=== PATIENT | female | born 1930 | race Caucasian/White ===

== ENCOUNTER 2018-09-01 07:33 | Emergency (ER) | payer BC ==
[~2018-09-01] VITALS: Ht 152.4 cm; Wt 77.1 kg
[2018-09-01 07:45] VITALS: BP_SYST 163
--- NOTE | 2018-09-01 07:45 | NUR ---
Arrived via WC with compliant of right flank pain x 2 days, suddenly worse at 5AM. Reports hematuria, denies fever. Patient is normally O2 dependent, SOB on arrival. Placed in room 8. Placed on registered nurse cardiac, blood pressure machine and pulse oximeter. To gown for exam. Side rails up. Report given to Bolivar I[place].
--- NOTE | 2018-09-01 07:50 | NUR ---
Pt presents to ER for sob and low back pain 06/24, however pt states low back pain is primarily at the L side at this time. Pt reports x 1 week she has been having urinary frequency and blood with urination along with the low back / L flank pain pain. Pt denies chest pain or nausea or vomiting at this time. Pt reports that she is normally on oxygen at home but was having trouble getting machine to work this AM. Otherwise, pt is AOX4, speaking full sentences, no signs of acute distress.
--- NOTE | 2018-09-01 07:55 | NUR ---
# 20 gauge angiocath placed to LAC. Use of asceptic technique. Opsite placed over site. Blood return noted. Blood for lab drawn from site. Flushed with 10 cc of normal saline. No evidence of infiltration noted. Patient tolerated well.
--- NOTE | 2018-09-01 08:00 | NUR ---
SEBAS Harper at bedside examining patient.
[2018-09-01] MEDS ORDERED: ONDANSETRON HCL 4 MG/2 ML VIAL IVP ONE (08:15)
[2018-09-01] MEDS ORDERED: MORPHINE 4 MG/ML INJ. SYRINGE IVP ONE (08:15)
[2018-09-01] MEDS ORDERED: NACL 0.9% 1,000 ML IV ONE (08:15)
--- NOTE | 2018-09-01 08:22 | NUR ---
Patient transported to radiology via gurney, accompanied by rad staff.
[2018-09-01 08:33] LABS: BASOPHILS # (AUTO) 0.1 K/uL (0.0-0.2); BASOPHILS % (AUTO) 0.7 % (0.0-2.0); EOSINOPHILS # (AUTO) 0.2 K/uL (0.0-0.4); EOSINOPHILS % (AUTO) 2.4 % (0.0-4.0); HEMATOCRIT 48.7 % (36-48); HEMOGLOBIN 16.2 g/dL (12.0-16.0); LYMPHOCYTES # (AUTO) 1.3 K/uL (1.0-5.5); MEAN CORPUSCULAR HEMOGLOBIN 31 pg (27-31); MEAN CORPUSCULAR HGB CONC 33 % (32-36); MEAN CORPUSCULAR VOLUME 92 fL (79.0-98.0); MONOCYTES # (AUTO) 0.5 K/uL (0.0-1.0); MONOCYTES % (AUTO) 6.6 % (1.7-9.3); NEUTROPHILS # (AUTO) 6.2 K/uL (1.8-7.7); NEUTROPHILS % (AUTO) 74.3 % (40.0-70.0); PLATELET COUNT (AUTO) 233 K/uL (130-430); RED BLOOD CELL COUNT(AUTO) 5.28 MIL/uL (4.2-6.2); WHITE BLOOD COUNT (AUTO) 8.3 K/uL (4.8-10.8)
[2018-09-01 08:35] LABS: BILIRUBIN,URINE NEGATIVE (NEGATIVE); BLOOD, URINE 3+ (NEGATIVE); CLARITY/URINE HAZY (CLEAR); COLOR,URINE YELLOW (YELLOW); GLUCOSE,URINE NEGATIVE (NEGATIVE); KETONES,URINE NEGATIVE (NEGATIVE); LEUKOCYTE ESTERASE ,URINE 1+ (NEGATIVE); NITRITE, URINE NEGATIVE (NEGATIVE); PH,URINE 5.5 (5.0-8.0); PROTEIN URINE 1+ (NEGATIVE); UROBILINOGEN,URINE 0.2 (0.2-1.0)
[2018-09-01 08:48] LABS: ANION GAP 11 (5-15); CALCIUM 9.4 mg/dL (8.4-11.0); CHLORIDE 104 mmol/L (98-107); CREATININE 0.85 mg/dL (0.55-1.30); GLUCOSE 108 mg/dL (70-99); POTASSIUM 3.5 mmol/L (3.5-5.1); SODIUM SERUM 141 mmol/L (136-145); UREA NITROGEN, BLOOD 12 mg/dL (8-21)
[2018-09-01 08:54] LABS: ALANINE AMINOTRANSFERASE 21 U/L (12-78); ALBUMIN 3.2 g/dL (3.4-4.8); ASPARTATE AMINOTRANSFERASE 24 U/L (10-37); TOTAL BILIRUBIN 1.6 mg/dL (0.0-1.0)
[2018-09-01 08:55] LABS: BACTERIA,URINE FEW /HPF (None Seen); CALCIUM OXALATE CRYSTALS,UR 0-10 /HPF (None Seen); RBC,URINE 20-50 /HPF (0-3)
[2018-09-01] MEDS ORDERED: NITROFURANTOIN MONOHYD/M-CRYST 100 MG CAPSULE PO ONE ×2 (09:15→09:18)
[2018-09-01] MEDS ORDERED: TAMSULOSIN HCL 0.4 MG CAP PO ONE (09:15)
--- NOTE | 2018-09-01 09:50 | NUR ---
Patient given written and verbal discharge instructions and verbalizes understanding. ER MD discussed with patient the results and treatment provided. Patient in stable condition. ID arm band removed. IV catheter removed intact and dressing applied, no active bleeding. Rx of Flomax, [place], Macrobid given. Patient educated on pain management and to follow up with PMD. Pain Scale 0/10. Opportunity for questions provided and answered. Medication side effect fact sheet provided.
[2018-09-01 09:54] VITALS: BP_SYST 168
== END 2018-09-01 09:54 | disposition home or self-care (01) ==
LOC: SED 07:33
DX: N20.0 Calculus of kidney (principal); N39.0 Urinary tract infection, site not specified; I48.91 Unspecified atrial fibrillation; I10 Essential (primary) hypertension
CPT/HCPCS: 36415; 74176; 80053; 81000; 83605; 85025; 87040; 87086; 93005; 96374; 96375; 99284; J2270; J2405; J7030

== ENCOUNTER 2019-08-16 02:40 | Emergency (ER) | payer BC ==
[~2019-08-16] VITALS: Ht 157.5 cm; Wt 79.8 kg
[2019-08-16 02:50] VITALS: BP_SYST 152
[2019-08-16] MEDS ORDERED: NACL 0.9% 1,000 ML IV ONE (03:33)
[2019-08-16] MEDS ORDERED: ONDANSETRON HCL 4 MG/2 ML VIAL IVP ONE (03:45)
[2019-08-16] MEDS ORDERED: MORPHINE 4 MG/ML INJ. SYRINGE IVP ONE (03:45)
[2019-08-16 04:01] LABS: BASOPHILS # (AUTO) 0.1 K/uL (0.0-0.2); EOSINOPHILS # (AUTO) 0.2 K/uL (0.0-0.4); EOSINOPHILS % (AUTO) 2.3 % (0.0-4.0); HEMATOCRIT 39.1 % (36-48); LYMPHOCYTES # (AUTO) 1.6 K/uL (1.0-5.5); LYMPHOCYTES % (AUTO) 17.1 % (20.5-51.5); MEAN CORPUSCULAR HEMOGLOBIN 31 pg (27-31); MEAN CORPUSCULAR HGB CONC 33 % (32-36); MEAN CORPUSCULAR VOLUME 92 fL (79.0-98.0); MONOCYTES # (AUTO) 0.9 K/uL (0.0-1.0); MONOCYTES % (AUTO) 9.6 % (1.7-9.3); NEUTROPHILS # (AUTO) 6.5 K/uL (1.8-7.7); PLATELET COUNT (AUTO) 227 K/uL (130-430); RED BLOOD CELL COUNT(AUTO) 4.23 MIL/uL (4.2-6.2); RED CELL DISTRIBUTION WIDTH 15.2 % (9.0-15.0); WHITE BLOOD COUNT (AUTO) 9.3 K/uL (4.8-10.8)
[2019-08-16 05:31] LABS: ALANINE AMINOTRANSFERASE 25 U/L (12-78); ALBUMIN 3.3 g/dL (3.4-4.8); ASPARTATE AMINOTRANSFERASE 17 U/L (10-37); CHLORIDE 104 mmol/L (98-107); CREATININE 0.93 mg/dL (0.55-1.30); GLUCOSE 111 mg/dL (70-99); POTASSIUM 3.2 mmol/L (3.5-5.1); TOTAL BILIRUBIN 0.8 mg/dL (0.0-1.0)
[2019-08-16 05:46] LABS: ANION GAP 6 (5-15); CALCIUM 9.4 mg/dL (8.4-11.0); SODIUM SERUM 143 mmol/L (136-145); UREA NITROGEN, BLOOD 19 mg/dL (8-21)
[2019-08-16 06:21] VITALS: BP_SYST 157
== END 2019-08-16 06:21 | disposition home or self-care (01) ==
LOC: SED 02:40
DX: M48.54XA Collapsed vertebra, not elsewhere classified, thoracic region, initial encounter for fracture (principal); E87.6 Hypokalemia; I10 Essential (primary) hypertension; I48.91 Unspecified atrial fibrillation
CPT/HCPCS: 36415; 72128; 80053; 85025; 93005; 96374; 96375; 99284; J2270; J2405; J7030

== ENCOUNTER 2019-10-08 21:25 | Inpatient (IN) | payer BC, OTHER ==
[~2019-10-08] VITALS: Ht 154.9 cm; Wt 82.1 kg
[2019-10-08 21:32] VITALS: BP_SYST 124
[2019-10-08] MEDS ORDERED: MORPHINE 2 MG/ML INJ. SYRINGE IVP ONE (22:45)
[2019-10-08] MEDS ORDERED: KETOROLAC TROMETHAMINE 15 MG VIAL IVP ONE (22:45)
[2019-10-08 22:56] LABS: BASOPHILS % (AUTO) 0.4 % (0.0-2.0); EOSINOPHILS # (AUTO) 0.3 K/uL (0.0-0.4); EOSINOPHILS % (AUTO) 3.7 % (0.0-4.0); HEMOGLOBIN 12.3 g/dL (12.0-16.0); LYMPHOCYTES % (AUTO) 10.6 % (20.5-51.5); MEAN CORPUSCULAR HEMOGLOBIN 29 pg (27-31); MEAN CORPUSCULAR HGB CONC 32 % (32-36); MEAN CORPUSCULAR VOLUME 89 fL (79.0-98.0); MONOCYTES # (AUTO) 0.8 K/uL (0.0-1.0); MONOCYTES % (AUTO) 8.6 % (1.7-9.3); NEUTROPHILS # (AUTO) 7.4 K/uL (1.8-7.7); NEUTROPHILS % (AUTO) 76.7 % (40.0-70.0); PLATELET COUNT (AUTO) 226 K/uL (130-430); RED BLOOD CELL COUNT(AUTO) 4.25 MIL/uL (4.2-6.2); RED CELL DISTRIBUTION WIDTH 15.5 % (9.0-15.0); WHITE BLOOD COUNT (AUTO) 9.6 K/uL (4.8-10.8)
[2019-10-08 23:04] LABS: ANION GAP 5 (5-15); CALCIUM 9.1 mg/dL (8.4-11.0); CHLORIDE 100 mmol/L (98-107); CREATININE 0.77 mg/dL (0.55-1.30); GLUCOSE 127 mg/dL (70-99); SODIUM SERUM 138 mmol/L (136-145); UREA NITROGEN, BLOOD 11 mg/dL (8-21)
[2019-10-08 23:08] LABS: INR 1.1 (0.8-1.2); PROTHROMBIN TIME 10.6 SECS (9.5-12.5)
[2019-10-08 23:10] LABS: ALANINE AMINOTRANSFERASE 18 U/L (12-78); ASPARTATE AMINOTRANSFERASE 23 U/L (10-37); TOTAL BILIRUBIN 0.7 mg/dL (0.0-1.0)
[2019-10-08 23:24] LABS: POTASSIUM 2.9 mmol/L (3.5-5.1)
[2019-10-09] MEDS ORDERED: FUROSEMIDE 40 MG/4 ML VIAL IVP ONE
[2019-10-09] MEDS ORDERED: MAGNESIUM SULFATE 50 ML IV ONE (00:30)
[2019-10-09] MEDS ORDERED: POTASSIUM CHLORIDE 10 MEQ TAB.PRT.SR PO ONE (00:30)
[2019-10-09] MEDS ORDERED: KCL 20 mEq in 100 mL (PREMIX) 100 ML IV ONE (00:30)
[2019-10-09 03:03] VITALS: BP_SYST 152
[2019-10-09] MEDS ORDERED: ACETAMINOPHEN 325 MG TABLET PO PRN (04:00)
[2019-10-09] MEDS ORDERED: MORPHINE 2 MG/ML INJ. SYRINGE IVP PRN (04:00)
[2019-10-09] MEDS: MORPHINE 2 MG/ML INJ. SYRINGE IVP PRN ×2 (05:55→17:30)
[2019-10-09 07:28] VITALS: BP_SYST 143
[2019-10-09 08:00] VITALS: BP_SYST 143
[2019-10-09 08:11] LABS: BASOPHILS % (AUTO) 0.6 % (0.0-2.0); EOSINOPHILS # (AUTO) 0.3 K/uL (0.0-0.4); EOSINOPHILS % (AUTO) 3.5 % (0.0-4.0); HEMATOCRIT 38.9 % (36-48); HEMOGLOBIN 12.5 g/dL (12.0-16.0); LYMPHOCYTES % (AUTO) 13.8 % (20.5-51.5); MEAN CORPUSCULAR HEMOGLOBIN 29 pg (27-31); MEAN CORPUSCULAR HGB CONC 32 % (32-36); MEAN CORPUSCULAR VOLUME 89 fL (79.0-98.0); MONOCYTES # (AUTO) 0.5 K/uL (0.0-1.0); MONOCYTES % (AUTO) 7.2 % (1.7-9.3); NEUTROPHILS # (AUTO) 5.6 K/uL (1.8-7.7); NEUTROPHILS % (AUTO) 74.9 % (40.0-70.0); PLATELET COUNT (AUTO) 219 K/uL (130-430); RED BLOOD CELL COUNT(AUTO) 4.35 MIL/uL (4.2-6.2); RED CELL DISTRIBUTION WIDTH 15.5 % (9.0-15.0); WHITE BLOOD COUNT (AUTO) 7.5 K/uL (4.8-10.8)
[2019-10-09 08:31] LABS: CHOLESTEROL 185 mg/dL (<200); TRIGLYCERIDES 88 mg/dL (30-150)
[2019-10-09 08:32] LABS: HDL CHOLESTEROL 59 mg/dL (>55); LDL CHOLESTEROL 101 mg/dL (<100)
[2019-10-09 08:35] LABS: ANION GAP 1 (5-15); CALCIUM 8.8 mg/dL (8.4-11.0); CHLORIDE 100 mmol/L (98-107); CREATININE 0.66 mg/dL (0.55-1.30); GLUCOSE 115 mg/dL (70-99); POTASSIUM 3.2 mmol/L (3.5-5.1); SODIUM SERUM 139 mmol/L (136-145); TOTAL BILIRUBIN 0.9 mg/dL (0.0-1.0); UREA NITROGEN, BLOOD 9 mg/dL (8-21)
[2019-10-09 08:36] LABS: ALANINE AMINOTRANSFERASE 20 U/L (12-78); ASPARTATE AMINOTRANSFERASE 20 U/L (10-37)
[2019-10-09] MEDS ORDERED: traZODone HCL 50 MG TABLET (DESYREL) PO PRN (08:45)
[2019-10-09] MEDS ORDERED: TRAZ-250 PO (08:45)
[2019-10-09] MEDS ORDERED: SENN-153 PO (08:45)
[2019-10-09] MEDS ORDERED: LORA-258 PO (08:45)
[2019-10-09] MEDS ORDERED: FURO-150 PO (08:45)
[2019-10-09] MEDS ORDERED: LORazepam 1 MG TABLET PO PRN ×2 (08:45→09:15)
[2019-10-09] MEDS ORDERED: DOCU-144 PO (08:45)
[2019-10-09] MEDS ORDERED: DOCUSATE SODIUM 100 MG CAPSULE PO SCH (09:00)
[2019-10-09] MEDS: ASPIRIN 81 MG TAB.CHEW PO SCH (09:05)
[2019-10-09] MEDS: METOPROLOL TARTRATE 25 MG TABLET PO SCH ×2 (09:06→20:46)
[2019-10-09] MEDS ORDERED: ALPRAZolam 0.25 MG TABLET PO ONE (09:15)
[2019-10-09] MEDS ORDERED: NITROGLYCERIN 0.4 MG TAB.SUBL SL PRN (09:15)
[2019-10-09] MEDS ORDERED: MORPHINE 2 MG/ML INJ. SYRINGE IVP ONE (09:15)
[2019-10-09] MEDS ORDERED: FUROSEMIDE 20 MG TABLET PO ONE (09:30)
[2019-10-09] MEDS ORDERED: NITROGLYCERIN 0.2 MG/HR PATCH.TD24 TD ONE (09:30)
[2019-10-09] MEDS ORDERED: SENNOSIDES 8.6 MG TABLET PO ONE (09:30)
[2019-10-09] MEDS ORDERED: MORPHINE 4 MG/ML INJ. SYRINGE IVP ONE (09:45)
[2019-10-09] MEDS: IPRATROPIUM/ALBUTEROL SULFATE 3 ML AMPUL.NEB (DUONEB) INH SCH ×4 (11:00→23:18)
[2019-10-09] MEDS: CALCITONIN SALMON,SYNTHETIC 3.7 ML SPRAY.PUMP NS SCH (11:13)
[2019-10-09 12:23] VITALS: BP_SYST 103
[2019-10-09 16:21] VITALS: BP_SYST 115
[2019-10-09] MEDS: LORazepam 1 MG TABLET PO PRN (17:29)
[2019-10-09 20:15] VITALS: BP_SYST 113
[2019-10-09] MEDS: SENNOSIDES 8.6 MG TABLET PO SCH (20:46)
[2019-10-09] MEDS: traZODone HCL 50 MG TABLET (DESYREL) PO SCH (20:48)
[2019-10-10 00:12] VITALS: BP_SYST 132
[2019-10-10] MEDS: IPRATROPIUM/ALBUTEROL SULFATE 3 ML AMPUL.NEB (DUONEB) INH SCH ×6 (03:31→22:53)
[2019-10-10] MEDS: LORazepam 1 MG TABLET PO PRN ×2 (03:36→12:21)
[2019-10-10] MEDS: MORPHINE 2 MG/ML INJ. SYRINGE IVP PRN ×6 (03:38→23:56)
[2019-10-10 07:26] LABS: BASOPHILS # (AUTO) 0.1 K/uL (0.0-0.2); EOSINOPHILS # (AUTO) 0.6 K/uL (0.0-0.4); EOSINOPHILS % (AUTO) 6.8 % (0.0-4.0); HEMATOCRIT 35.8 % (36-48); HEMOGLOBIN 11.4 g/dL (12.0-16.0); LYMPHOCYTES # (AUTO) 1.3 K/uL (1.0-5.5); LYMPHOCYTES % (AUTO) 15.7 % (20.5-51.5); MEAN CORPUSCULAR HEMOGLOBIN 29 pg (27-31); MEAN CORPUSCULAR HGB CONC 32 % (32-36); MEAN CORPUSCULAR VOLUME 90 fL (79.0-98.0); MONOCYTES # (AUTO) 0.7 K/uL (0.0-1.0); MONOCYTES % (AUTO) 8.6 % (1.7-9.3); NEUTROPHILS # (AUTO) 5.7 K/uL (1.8-7.7); NEUTROPHILS % (AUTO) 67.9 % (40.0-70.0); PLATELET COUNT (AUTO) 208 K/uL (130-430); RED BLOOD CELL COUNT(AUTO) 3.99 MIL/uL (4.2-6.2); RED CELL DISTRIBUTION WIDTH 15.6 % (9.0-15.0); WHITE BLOOD COUNT (AUTO) 8.4 K/uL (4.8-10.8)
[2019-10-10 07:44] LABS: ALANINE AMINOTRANSFERASE 14 U/L (12-78); ALBUMIN 2.8 g/dL (3.4-4.8); ANION GAP 2 (5-15); ASPARTATE AMINOTRANSFERASE 22 U/L (10-37); CALCIUM 8.8 mg/dL (8.4-11.0); CHLORIDE 98 mmol/L (98-107); GLUCOSE 125 mg/dL (70-99); POTASSIUM 3.3 mmol/L (3.5-5.1); SODIUM SERUM 137 mmol/L (136-145); THYROID STIMULATING HORMONE 1.71 uIu/mL (0.36-3.74); TOTAL BILIRUBIN 0.8 mg/dL (0.0-1.0); UREA NITROGEN, BLOOD 21 mg/dL (8-21)
[2019-10-10 08:00] VITALS: BP_SYST 111
[2019-10-10] MEDS ORDERED: POTASSIUM CHLORIDE 20 MEQ TAB.PRT.SR PO ONE (08:15)
[2019-10-10] MEDS: SENNOSIDES 8.6 MG TABLET PO SCH ×2 (08:16→20:04)
[2019-10-10] MEDS: ASPIRIN 81 MG TAB.CHEW PO SCH (08:16)
[2019-10-10] MEDS: DOCUSATE SODIUM 100 MG CAPSULE PO SCH (08:16)
[2019-10-10] MEDS: METOPROLOL TARTRATE 25 MG TABLET PO SCH ×2 (08:17→20:04)
[2019-10-10] MEDS: NITROGLYCERIN 0.2 MG/HR PATCH.TD24 TD SCH (08:18)
[2019-10-10] MEDS: FUROSEMIDE 20 MG TABLET PO SCH (08:18)
[2019-10-10] MEDS: CALCITONIN SALMON,SYNTHETIC 3.7 ML SPRAY.PUMP NS SCH (10:03)
[2019-10-10 12:00] VITALS: BP_SYST 110
[2019-10-10 16:00] VITALS: BP_SYST 144
[2019-10-10 19:00] VITALS: BP_SYST 134
[2019-10-10 20:00] VITALS: BP_SYST 134
[2019-10-10] MEDS: traZODone HCL 50 MG TABLET (DESYREL) PO SCH (20:03)
[2019-10-11 00:16] VITALS: BP_SYST 112
[2019-10-11] MEDS: IPRATROPIUM/ALBUTEROL SULFATE 3 ML AMPUL.NEB (DUONEB) INH SCH ×4 (03:00→15:09)
[2019-10-11] MEDS: MORPHINE 2 MG/ML INJ. SYRINGE IVP PRN ×2 (04:20→11:09)
[2019-10-11 07:46] LABS: ALANINE AMINOTRANSFERASE 16 U/L (12-78); ALBUMIN 2.6 g/dL (3.4-4.8); ANION GAP 2 (5-15); ASPARTATE AMINOTRANSFERASE 19 U/L (10-37); CALCIUM 8.7 mg/dL (8.4-11.0); CHLORIDE 96 mmol/L (98-107); CREATININE 0.84 mg/dL (0.55-1.30); GLUCOSE 117 mg/dL (70-99); POTASSIUM 3.3 mmol/L (3.5-5.1); SODIUM SERUM 132 mmol/L (136-145); UREA NITROGEN, BLOOD 19 mg/dL (8-21)
[2019-10-11 08:00] VITALS: BP_SYST 122
[2019-10-11] MEDS: NITROGLYCERIN 0.2 MG/HR PATCH.TD24 TD SCH (09:00)
[2019-10-11] MEDS: FUROSEMIDE 20 MG TABLET PO SCH (09:00)
[2019-10-11] MEDS: SENNOSIDES 8.6 MG TABLET PO SCH (09:00)
[2019-10-11] MEDS: DOCUSATE SODIUM 100 MG CAPSULE PO SCH (09:00)
[2019-10-11] MEDS: ASPIRIN 81 MG TAB.CHEW PO SCH (09:00)
[2019-10-11] MEDS: METOPROLOL TARTRATE 25 MG TABLET PO SCH (09:00)
[2019-10-11] MEDS: CALCITONIN SALMON,SYNTHETIC 3.7 ML SPRAY.PUMP NS SCH (09:03)
[2019-10-11 12:30] VITALS: BP_SYST 126
[2019-10-11 16:10] VITALS: BP_SYST 130
== END 2019-10-11 15:45 | disposition home health service (06) | DRG 205 ==
LOC: SED 21:25 → STU 10-09 00:33
PROVIDERS: ADMIT Internal Medicine Hospice and Palliative Medicine; ATTEND Internal Medicine Hospice and Palliative Medicine
DX: S22.32XA Fracture of one rib, left side, initial encounter for closed fracture (principal); J96.21 Acute and chronic respiratory failure with hypoxia; I50.43 Acute on chronic combined systolic (congestive) and diastolic (congestive) heart failure; S32.592A Other specified fracture of left pubis, initial encounter for closed fracture; I48.20 Chronic atrial fibrillation, unspecified; S32.9XXA Fracture of unspecified parts of lumbosacral spine and pelvis, initial encounter for closed fracture; I42.0 Dilated cardiomyopathy; E87.6 Hypokalemia; J84.10 Pulmonary fibrosis, unspecified; I25.10 Atherosclerotic heart disease of native coronary artery without angina pectoris; F32.9 Major depressive disorder, single episode, unspecified; I11.0 Hypertensive heart disease with heart failure; Z66 Do not resuscitate; F41.9 Anxiety disorder, unspecified; W01.0XXA Fall on same level from slipping, tripping and stumbling without subsequent striking against object, initial encounter; Y93.89 Activity, other specified; Y92.89 Other specified places as the place of occurrence of the external cause; Y99.8 Other external cause status; Z82.49 Family history of ischemic heart disease and other diseases of the circulatory system; Z99.81 Dependence on supplemental oxygen; Z87.891 Personal history of nicotine dependence
CPT/HCPCS: 36415; 71045; 71100; 72170-TC; 73502; 80053; 80061; 83735-TC; 83880; 84443-TC; 84484; 85025; 85610-TC; 85730-TC; 93005; 93306; 94640; 94760; 96365; 96368; 96375; 99285; G0378; J1885; J1940; J2270; J3475; J3480; J7040; J7620